=== PATIENT | male | born 1945 | race Caucasian/White ===

== ENCOUNTER 2025-01-03 17:30 | Emergency (ER) | payer OTHER, MEDICARE ==
[~2025-01-03] VITALS: Ht 193 cm; Wt 109.0 kg
--- NOTE | 2025-01-03 17:53 | ED.PDOC ---
History of Present Illness HPI Comments 79-year-old male brought in by EMS from home after multiple syncopal episodes while sitting on the commode. Patient states he has been having abdominal cramping since this morning. Was sitting on the commode, straining to have a bowel movement when he felt lightheaded and lost consciousness. EMS reports vanesa lira was still in and out of consciousness while sitting on the commode when they arrived. Patient's blood pressure was in the mid 80s systolic with heart rate in the mid 50s (patient takes metoprolol), so a 500 cc normal saline bolus was administered, improving the patient's blood pressure to the 120s systolic by the time he arrived in the ER. On arrival, patient states he has lower abdominal discomfort, but not significant pain. He denies any fever, nausea, vomiting, chest pain, shortness a breath or urinary symptoms. Patient does state he has chronic constipation but just prior to the syncopal episode he had some loose stool. EMS reported there was no blood in the stool, and it was not black in color. Chief Complaint: Syncope Time Seen by MD: 17:34 Allergies: Coded Allergies: NO KNOWN ALLERGIES (Unverified , 01/03/25) Home Meds Active Scripts Cephalexin Monohydrate (Cephalexin) 500 Mg Cap, 1 CAP PO QID for 10 Days, #40 CAP Prov:IVA CARDOZO MD 01/03/25 Dicyclomine Hcl (BENTYL CAPSULE) 10 Mg Cp, 2 CAP PO Q6HP PRN, #30 CAP 11 Refills prn intestinal cramping Prov:IVA CARDOZO MD 01/03/25 Past Medical History PAST MEDICAL HISTORY: CAD, DM, High Lipids, HTN Past Medical History (Other): Kidney cancer in remission Surgical History: PTCA Surgical History (Other): Nephrectomy Family History Family History: Reviewed,noncontributory to illness Social History Smoker: Non-Smoker Alcohol: Denies ETOH Use Drugs: Denies Drug Use Lives In: Home All Other Systems: Reviewed and Negative (Comprehensive systems review obtained and negative except for what is stated in the HPI.) Physical Exam General Appearance: No Apparent Distress, Obese HEENT: Other (Pupils and face symmetric. Moist mucous membranes.) Neck: Full Range of Motion, Normal Inspection Respiratory: Lungs Clear, No Accessory Muscle Use, No Respiratory Distress, Normal Breath Sounds Cardiovascular: No Edema, No JVD, Regular Rate/Rhythm Breast Exam: Deferred Gastrointestinal: Soft, Tenderness (Lower abdominal tenderness to palpation. Nontender to percussion. No rebound or guarding.) Genitalia: Deferred Pelvic: Deferred Rectal: Deferred Extremities: Normal inspection, Normal range of motion, Non-tender, No pedal edema Neurologic: Alert (Oriented x4), Normal Affect, Normal Mood, Other (Moves all extremities. No gross focal deficit.) Cerebellar Function: NOT DONE Reflexes: NOT DONE Skin: Dry, Normal Color, Warm Lymphatic: NOT DONE Was a procedure done? Was a procedure done?: No EKG EKG : Comments Sinus rhythm, rate 54, first-degree AV block, normal QRS and QTC intervals, borderline right axis deviation, normal QRS, no ST/T changes. Differential Dx Considerations may include: Vasovagal syncope, CVA, TIA, arrhythmia, OR, hypovolemia, enteritis, colitis, diverticular disease, UTI, kidney stone, electrolyte imbalance, among others X-Ray, Labs, Meds, VS Vital Signs Date Time Temp Pulse Resp B/P (MAP) Pulse Ox O2 Delivery O2 Flow Rate FiO2 01/03/25 20:00 73 01/03/25 19:41 55 16 96 Room Air* 0 21 01/03/25 19:41 97.9 55 16 154/49 (84) 95 97.9 01/03/25 18:05 54 01/03/25 17:55 54 01/03/25 17:39 97.5 54 16 121/54 (76) 94 97.5 01/03/25 17:32 54 Lab Test 01/03/25 20:00 01/03/25 19:00 01/03/25 17:52 Range/Units Urine Color Yellow Yellow Urine Clarity Clear Clear Urine pH 5.5 5.0-9.0 Urine Specific [place] 1.017 1.001-1.035 Urine Protein Trace H Negative Urine Ketones Trace Negative Urine Blood Negative Negative /uL Urine Nitrite Negative Negative Urine Bilirubin Negative Negative Urine Urobilinogen Normal Negative mg/dL Urine Leukocyte Esterase 3+ Negative /uL Urine RBC 2 0 - 3 /hpf Urine Microscopic WBC 21 H 0-3 /HPF Urine Squamous Epithelial Cells Few <5 /hpf Urine Bacteria Few H None Seen /hpf Urine Hyaline Casts Mod 0 - 2 /lpf Urine Mucus Few None Seen Urine Glucose Normal Normal mg/dL Troponin I High Sensitivity 9 8 </=54 ng/L White Blood Count 14.7 H 4.4-10.8 10^3/uL Red Blood Count 4.44 L 4.5-5.90 10^6/uL Hemoglobin 14.7 13.5-17.5 g/dL Hematocrit 43.4 41.0-53.0 % Mean Corpuscular Volume 97.7 80.0-100.0 fL Mean Corpuscular Hemoglobin 33.2 H 28.0-32.0 pg Mean Corpuscular Hemoglobin Concent 33.9 32.0-36.0 g/dL Red Cell Distribution Width 13.8 11.8-14.3 % Platelet Count 219 140-450 10^3/uL Mean Platelet Volume 8.2 6.9-10.8 fL Neutrophils (%) (Auto) 82.5 H 37.0-80.0 % Lymphocytes (%) (Auto) 11.8 10.0-50.0 % Monocytes (%) (Auto) 4.0 0.0-12.0 % Eosinophils (%) (Auto) 1.1 0.0-7.0 % Basophils (%) (Auto) 0.6 0.0-2.0 % Neutrophils # (Auto) 12.1 H 1.6-8.6 10 ^3/uL Lymphocytes # (Auto) 1.7 0.4-5.4 10 ^3/uL Monocytes # (Auto) 0.6 0-1.3 10 ^3/uL Eosinophils # (Auto) 0.2 0-0.8 10 ^3/uL Basophils # (Auto) 0.1 0-0.2 10 ^3/uL Nucleated Red Blood Cells 0.0 % Sodium Level 142 136-145 mmol/L Potassium Level 4.9 3.5-5.1 mmol/L Chloride Level 112 H 98-107 mmol/L Carbon Dioxide Level 24 20-31 mmol/L Anion Gap 6 5-15 Blood Urea Nitrogen 20 9-23 mg/dL Creatinine 1.51 H 0.700-1.30 mg/dL Glomerular Filtration Rate Calc 47 >90 mL/min BUN/Creatinine Ratio 13.2 10.0-20.0 Serum Glucose 149 H 74-106 mg/dL Calcium Level 9.5 8.7-10.4 mg/dL Total Bilirubin 0.8 0.2-1.0 mg/dL Aspartate Amino Transferase (AST) 20 13-40 U/L Alanine Aminotransferase (ALT) 30 7-40 U/L Alkaline Phosphatase 77 46-116 U/L B-Type Natriuretic Peptide 76.10 0-100 pg/mL Total Protein 6.2 5.7-8.2 g/dL Albumin 4.0 3.2-4.8 g/dL Current Medications Medications (Trade) Dose Ordered Sig/Holley Route Start Time Stop Time Status Last Admin Sodium Chloride 500 ml @ 500 mls/hr Q1H ONCE IV 01/03/25 17:45 01/03/25 18:44 DC 01/03/25 17:55 Ceftriaxone Sodium 50 ml @ 100 mls/hr ONCE ONCE IV 01/03/25 21:00 01/03/25 21:29 DC 01/03/25 21:15 PROCEDURE(s): HWOCT - HEAD WITHOUT CONTRAST REASON: syncope ORDER NUMBER(s): [id number], ACCESSION NUMBER(s): [id number] CT HEAD WITHOUT CONTRAST INDICATION: syncope COMPARISON: None TECHNIQUE: CT of the head without intravenous contrast. RADIATION DOSE: CTDIvol: 63 mGy, DLP: 1130 mGy*cm FINDINGS: There is no evidence of acute intracranial hemorrhage, extra-axial collection, mass effect, midline shift, herniation or hydrocephalus. The ventricles, sulci and cisterns are commensurate in size with a mild degree of cerebral volume loss. The peters-white differentiation is intact. Mild periventricular and subcortical white matter hypoattenuation is nonspecific but commonly due to chronic microvascular ischemia. Atherosclerosis in the carotid siphons and right V4 vertebral artery. There is hyperostosis of the right maxillary sinus wall which is suggestive of chronic inflammation. Minimal mucosal thickening in the ethmoid sinuses. Tiny mucous retention cyst in the right frontal sinus. The mastoids are well-aerated. The surrounding soft tissues and osseous structures are unremarkable. IMPRESSION: No evidence of acute intracranial abnormalities. EDURE(s): ABPL - CT AB PEL WO CON-NO ORAL OR IV REASON: abd pain, diarrhea ORDER NUMBER(s): [id number], ACCESSION NUMBER(s): [id number] Exam: CT CT AB PEL WO CON-NO ORAL OR IV History: abd pain, diarrhea Comparison Study: None TECHNIQUE: Multidetector CT of the abdomen was performed from lung bases to pubic symphysis. Imaging was performed without IV contrast. Axial, coronal and sagittal multiplanar reformats were obtained from the axial data set by the technologist. Radiation Dose Information: CT Dose: CTDI volume is 23.31 mGy. Dose-length product is 1166.47 mGy*cm FINDINGS: Evaluation of solid organs is limited due to lack of intravenous contrast use. Findings: Lung Bases: Scarring or linear atelectasis left base Normal heart size. No pleural or pericardial effusion. Liver: The liver is normal in size. No focal lesions. Gallbladder and Biliary Tree: Unremarkable Spleen: Unremarkable Pancreas: The pancreas is grossly normal in appearance. Adrenal Glands: Unremarkable Kidneys: Left kidney not visualized. 6.6 cm cyst upper pole right kidney and a smaller cyst more inferiorly noted. The larger cyst appears to be septated and most likely is a Bosniak 1. Bladder: Grossly unremarkable for degree of distention. Bowel: The stomach is grossly normal in appearance. Small bowel and colon are normal in caliber and distribution. The appendix is not visualized; however, no secondary findings of acute appendicitis identified. Ascites: Absent Lymphadenopathy: No mesenteric, retroperitoneal or periportal lymphadenopathy. Abdominal Wall and Mesentery: 4.8 cm fat containing umbilical hernia. Vasculature: The visualized abdominal aorta is normal in size and caliber. Evaluation of abdominal and pelvic vessels is limited due to lack of intravenous contrast. Pelvic Organs: Unremarkable Musculoskeletal: No aggressive focal bony lesions, acute fractures or dislocation. Bony spondylosis and degenerative disc changes at L3-L4 and L5 S1 Soft tissues: Unremarkable IMPRESSION: 1. 6.5 cm cyst upper pole right kidney 2. 4.8 cm fat containing umbilical hernia 3. No findings of bowel obstruction. Radiation optimization: All CT scans at this facility use at least one of these dose optimization techniques: automated exposure control mA and/or kV adjustment per patient size (includes targeted exams where dose is matched to clinical indication) or iterative reconstruction. X-Ray, Labs, Meds, VS Comment 79-year-old male with history of hypertension, diabetes, CAD, dyslipidemia presenting with a syncopal episode after experiencing intestinal cramping, then straining at stool on the commode, associated with initial constipation followed by watery stool Vitals remarkable for heart rate 54, BP 121/54 Exam remarkable for bradycardia and lower abdominal tenderness to palpation Rhythm strip independently interpreted by me: Sinus bradycardia, rate 54, no ectopy. CT head IMPRESSION: No evidence of acute intracranial abnormalities. CT abdomen and pelvis IMPRESSION: 1. 6.5 cm cyst upper pole right kidney 2. 4.8 cm fat containing umbilical hernia 3. No findings of bowel obstruction. CBC remarkable for WBC 14.7. CMP, BNP and troponin unremarkable. UA abnormal consistent with UTI Patient treated with the following in the ED: 500 cc 0.9 normal saline IV bolus, Bentyl 20 mg IM, Rocephin 1 g IV with improvement of symptoms. On re-evaluation, vitals were stable, patient was neurologically intact and was asymptomatic. Hospitalization was considered and discussed with patient, however patient stated he did not want to be hospitalized, and had rapid improvement of symptoms with treatment in the ED. Patient appears stable for discharge with close outpatient follow up with his primary physician. Rx Keflex, Bentyl Time of 1ST Reevaluation: 18:00 Reevaluation 1ST: Unchanged Time of 2ND Reevaluation: 19:27 Reevaluation 2ND: Improved Patient Education/Counseling: Diagnosis, Treatment, Need For Follow Up Family Education/Counseling: No Family Present Departure 1 Departure Time of Disposition: 19:27 Impression: Primary Impression: Vasovagal syncope Additional Impressions: Intestinal cramps UTI (urinary tract infection) Qualified Codes: N39.0 - Urinary tract infection, site not specified Disposition: HOME / SELF CARE / HOMELESS Condition: Stable Additional Instructions: I have prescribed medication for intestinal cramping and antibiotics for urine urinary tract infection. Follow up with her primary doctor in 1-2 days. Return to ER for persistent or worsening symptoms. e-Prescriptions Cephalexin Monohydrate (Cephalexin) 500 Mg Cap 1 CAP PO QID for 10 Days, #40 CAP Prov: IVA CARDOZO MD 01/03/25 Dicyclomine Hcl (BENTYL CAPSULE) 10 Mg Cp 2 CAP PO Q6HP PRN, #30 CAP 11 Refills prn intestinal cramping Prov: IVA CARDOZO MD 01/03/25 Discharged With: Relative Critical Care Note Critical Care Time?: No Stability Stability form required: No Heart Score Heart Score: Heart Score Response (Comments) Value History N/A 0 EKG N/A 0 Age N/A 0 Risk Factors N/A 0 Troponin N/A 0 Total 0 IVA CARDOZO MD Jan 03, 2025 17:52
[2025-01-03] MEDS: SODIUM CHLORIDE 0.9% 500 ML IV ONE (17:55)
--- NOTE | 2025-01-03 17:55 | ED.PDOC ---
History of Present Illness HPI Comments 79-year-old male brought in by EMS presents with a chief complaint of syncopal episodes, diarrhea, abdominal pain, and diaphoresis. Patient had multiple syncopal episodes today while in the restroom. Patient however denies hitting his head or any fall injuries. Patient was pale and diaphoretic on EMS arrival. Patient is also complaining of diarrhea, but denies nausea and vomiting. Patient also endorses abdominal cramping. Patient was given 300mL of NS due to a low BP of 83/54. Chief Complaint: Syncope Time Seen by MD: 17:50 Primary Care Provider: UNKNOWN Reviewed Notes: Medications, Allergies Allergies: Coded Allergies: NO KNOWN ALLERGIES (Unverified , 01/03/25) Information Source: Patient, Emergency Med Personnel Mode of Arrival: EMS Severity: Moderate Timing: Minutes Duration: Since onset Prehospital treatment: 12 Lead EKG, Photographer Aerial, IVF Past Medical History PAST MEDICAL HISTORY: Pt Confused Surgical History: Denies all surgeries Family History Family History: Reviewed,noncontributory to illness Social History Smoker: Non-Smoker Alcohol: Denies ETOH Use Drugs: Denies Drug Use Lives In: Home Constitutional: reports: diaphoresis; denies: chills, fatigue, fever, malaise, sweats, weakness, others EENTM: denies: blurred vision, double vision, ear bleeding, ear discharge, ear drainage, ear pain, ear ringing, eye pain, eye redness, hearing loss, mouth pain, mouth swelling, nasal discharge, nose bleeding, nose congestion, nose pain, photophobia, tearing, throat pain, throat swelling, voice changes, others Respiratory: denies: cough, hemoptysis, orthopnea, SOB at rest, shortness of breath, SOB with excertion, stridor, wheezing, others Cardiovascular: reports: syncope; denies: chest pain, dizzy spells, diaphoresis, Dyspnea on exertion, edema, irregular heart beat, left arm pain, lightheadedness, palpitations, PND, others Gastrointestinal: reports: abdominal pain, diarrhea; denies: abdomen distended, blood streaked bowels, constipated, dysphagia, difficulty swallowing, hematemesis, melena, nausea, poor appetite, poor fluid intake, rectal bleeding, rectal pain, vomiting, others Genitourinary: denies: burning, dysuria, flank pain, frequency, hematuria, incontinence, penile discharge, penile sore, pain, testicle pain, testicle swelling, urgency, others Neurological: denies: dizziness, fainting, headache, left sided numbness, left sided weakness, numbness, paresthesia, pre-existing deficit, right sided numbness, right sided weakness, seizure, speech problems, tingling, tremors, weakness, others Musculoskeletal: denies: back pain, gout, joint pain, joint swelling, muscle pain, muscle stiffness, neck pain, others Integumetry: denies: bruises, change in color, change in hair/nails, dryness, laceration, lesions, lumps, rash, wounds, others Allergic/Immunocompromised: denies: Difficulty Healing, Frequent Infections, Hives, Itching, others Hematologic/Lymphatic: denies: anemia, blood clots, easy bleeding, easy bruising, swollen glands, others Endocrine: denies: excessive hunger, excessive sweating, excessive thirst, excessive urination, flushing, intolerance to cold, intolerance to heat, unexplained weight gain, unexplained weight loss, others Psychiatric: denies: anxiety, bipolar disorder, depression, hopeless, panic disorder, schizophrenia, sleepless, suicidal, others All Other Systems: Reviewed and Negative Was a procedure done? Was a procedure done?: No EKG EKG : Pulse Rate (adult): 54 [place]: RAD Cardiac Rhythm: Junctional Block: None Hypertrophy: None ST: Normal X-Ray, Labs, Meds, VS Vital Signs Date Time Temp Pulse Resp B/P (MAP) Pulse Ox O2 Delivery O2 Flow Rate FiO2 01/03/25 17:55 54 01/03/25 17:39 97.5 54 16 121/54 (76) 94 97.5 01/03/25 17:32 54 Lab Test 01/03/25 17:52 Range/Units White Blood Count 14.7 H 4.4-10.8 10^3/uL Red Blood Count 4.44 L 4.5-5.90 10^6/uL Hemoglobin 14.7 13.5-17.5 g/dL Hematocrit 43.4 41.0-53.0 % Mean Corpuscular Volume 97.7 80.0-100.0 fL Mean Corpuscular Hemoglobin 33.2 H 28.0-32.0 pg Mean Corpuscular Hemoglobin Concent 33.9 32.0-36.0 g/dL Red Cell Distribution Width 13.8 11.8-14.3 % Platelet Count 219 140-450 10^3/uL Mean Platelet Volume 8.2 6.9-10.8 fL Neutrophils (%) (Auto) 82.5 H 37.0-80.0 % Lymphocytes (%) (Auto) 11.8 10.0-50.0 % Monocytes (%) (Auto) 4.0 0.0-12.0 % Eosinophils (%) (Auto) 1.1 0.0-7.0 % Basophils (%) (Auto) 0.6 0.0-2.0 % Neutrophils # (Auto) 12.1 H 1.6-8.6 10 ^3/uL Lymphocytes # (Auto) 1.7 0.4-5.4 10 ^3/uL Monocytes # (Auto) 0.6 0-1.3 10 ^3/uL Eosinophils # (Auto) 0.2 0-0.8 10 ^3/uL Basophils # (Auto) 0.1 0-0.2 10 ^3/uL Nucleated Red Blood Cells 0.0 % Sodium Level Pending Potassium Level Pending Chloride Level Pending Carbon Dioxide Level Pending Anion Gap Pending Blood Urea Nitrogen Pending Creatinine Pending Glomerular Filtration Rate Calc Pending BUN/Creatinine Ratio Pending Serum Glucose Pending Calcium Level Pending Total Bilirubin Pending Aspartate Amino Transferase (AST) Pending Alanine Aminotransferase (ALT) Pending Alkaline Phosphatase Pending Troponin I High Sensitivity Pending B-Type Natriuretic Peptide Pending Total Protein Pending Albumin Pending Current Medications Medications (Trade) Dose Ordered Sig/Holley Route Start Time Stop Time Status Last Admin Sodium Chloride 500 ml @ 500 mls/hr Q1H ONCE IV 01/03/25 17:45 01/03/25 18:44 01/03/25 17:55 Time of 1ST Reevaluation: 18:20 Reevaluation 1ST: Unchanged Patient Education/Counseling: Diagnosis, Treatment Family Education/Counseling: No Family Present Critical Care Note Critical Care Time?: No Stability Stability form required: No Heart Score Heart Score: Heart Score Response (Comments) Value History N/A 0 EKG N/A 0 Age N/A 0 Risk Factors N/A 0 Troponin N/A 0 Total 0 I personally scribed for IVA CARDOZO MD ([email or web address]) on 01/03/25 at 17:55. Electronically submitted by Alvino Chen ([email or web address]). I personally scribed for IVA CARDOZO MD ([email or web address]) on 01/03/25 at 18:11. Electronically submitted by Alvino Chen ([email or web address]). IVA CARDOZO MD Jan 03, 2025 17:55
[2025-01-03 18:07] LABS: Basophils # (auto) 0.1 10 ^3/uL (0-0.2); Basophils % (auto) 0.6 % (0.0-2.0); Eosinophils # (auto) 0.2 10 ^3/uL (0-0.8); Eosinophils % (auto) 1.1 % (0.0-7.0); Hematocrit 43.4 % (41.0-53.0); Hemoglobin 14.7 g/dL (13.5-17.5); Lymphocytes # (auto) 1.7 10 ^3/uL (0.4-5.4); Lymphocytes % (auto) 11.8 % (10.0-50.0); Mean Corpuscular Hemoglobin 33.2 pg (28.0-32.0); Mean Corpuscular Hgb Conc. 33.9 g/dL (32.0-36.0); Mean Corpuscular Volume 97.7 fL (80.0-100.0); Monocytes # (auto) 0.6 10 ^3/uL (0-1.3); Neutrophils # (auto) 12.1 10 ^3/uL (1.6-8.6); Neutrophils % (auto) 82.5 % (37.0-80.0); Platelet Count (auto) 219 10^3/uL (140-450); Red Blood Cells 4.44 10^6/uL (4.5-5.90); Red Cell Distribution Width 13.8 % (11.8-14.3); White Blood Cell 14.7 10^3/uL (4.4-10.8)
[2025-01-03 18:24] LABS: Alanine Aminotransferase 30 U/L (7-40); Alkaline Phosphatase 77 U/L (46-116); Anion Gap 6 (5-15); Aspartate Aminotransferase 20 U/L (13-40); BUN/Creatinine Ratio 13.2 (10.0-20.0); Bilirubin, Total 0.8 mg/dL (0.2-1.0); Blood Urea Nitrogen 20 mg/dL (9-23); Calcium 9.5 mg/dL (8.7-10.4); Carbon Dioxide 24 mmol/L (20-31); Potassium 4.9 mmol/L (3.5-5.1); Sodium 142 mmol/L (136-145); Total Protein 6.2 g/dL (5.7-8.2)
[2025-01-03 18:25] LABS: Chloride 112 mmol/L (98-107); Glucose 149 mg/dL (74-106)
--- NOTE | 2025-01-03 18:45 | DVH ---
CT HEAD WITHOUT CONTRAST INDICATION: syncope COMPARISON: None TECHNIQUE: CT of the head without intravenous contrast. RADIATION DOSE: CTDIvol: 63 mGy, DLP: 1130 mGy*cm FINDINGS: There is no evidence of acute intracranial hemorrhage, extra-axial collection, mass effect, midline s hift, herniation or hydrocephalus. The ventricles, sulci and cisterns are commensurate in size with a mild degree of cerebral volume los s. The peters-white differentiation is intact. Mild periventricular and subcortical white matter hypoattenuation is nonspecific but commonly due to chronic microvascular ischemia. Atherosclerosis in the carotid siphons and right V4 vertebral artery. There is hyperostosis of the right maxillary sinus wall which is suggestive of chronic inflammation. Minimal mucosal thickening in the ethmoid sinuses. Tiny mucous retention cyst in the right frontal si nus. The mastoids are well-aerated. The surrounding soft tissues and osseous structures are unremarkable. IMPRESSION: No evidence of acute intracranial abnormalities.
--- NOTE | 2025-01-03 19:15 | DVH ---
Exam: CT CT AB PEL WO CON-NO ORAL OR IV History: abd pain, diarrhea Comparison Study: None TECHNIQUE: Multidetector CT of the abdomen was performed from lung bases to pubic symphysis. Imaging was performed without IV contrast. Axial, coronal and sagittal multiplanar reformats were obtained fr om the axial data set by the technologist. Radiation Dose Information: CT Dose: CTDI volume is 23.31 mGy. Dose-length product is 1166.47 mGy*cm FINDINGS: Evaluation of solid organs is limited due to lack of intravenous contrast use. Findings: Lung Bases: Scarring or linear atelectasis left base Normal heart size. No pleural or pericardial ef fusion. Liver: The liver is normal in size. No focal lesions. Gallbladder and Biliary Tree: Unremarkable Spleen: Unremarkable Pancreas: The pancreas is grossly normal in appearance. Adrenal Glands: Unremarkable Kidneys: Left kidney not visualized. 6.6 cm cyst upper pole right kidney and a smaller cyst more infe riorly noted. The larger cyst appears to be septated and most likely is a Bosniak 1. Bladder: Grossly unremarkable for degree of distention. Bowel: The stomach is grossly normal in appearance. Small bowel and colon are normal in caliber and d istribution. The appendix is not visualized; however, no secondary findings of acute appendicitis id entified. Ascites: Absent Lymphadenopathy: No mesenteric, retroperitoneal or periportal lymphadenopathy. Abdominal Wall and Mesentery: 4.8 cm fat containing umbilical hernia. Vasculature: The visualized abdominal aorta is normal in size and caliber. Evaluation of abdominal a nd pelvic vessels is limited due to lack of intravenous contrast. Pelvic Organs: Unremarkable Musculoskeletal: No aggressive focal bony lesions, acute fractures or dislocation. Bony spondylosis a nd degenerative disc changes at L3-L4 and L5 S1 Soft tissues: Unremarkable IMPRESSION: 1. 6.5 cm cyst upper pole right kidney 2. 4.8 cm fat containing umbilical hernia 3. No findings of bowel obstruction. Radiation optimization: All CT scans at this facility use at least one of these dose optimization max hniques: automated exposure control mA and/or kV adjustment per patient size (includes targeted exam s where dose is matched to clinical indication) or iterative reconstruction.
[2025-01-03] MEDS ORDERED: DICY10CA PO (19:29)
[2025-01-03 19:41] VITALS: BP 154/49; PULSE 55; RESP 16; TEMP 97.9; O2SAT 96
[2025-01-03] MEDS: DICYCLOMINE HCL (10MG/ML) 2 ML AMPULE IM ONE (19:50)
[2025-01-03 20:00] VITALS: PULSE 73
[2025-01-03 20:45] LABS: Urine Bacteria FEW /hpf (None Seen); Urine Blood Negative /uL (Negative); Urine Clarity Clear (Clear); Urine Color Yellow (Yellow); Urine Hyaline Cast MOD /lpf (0 - 2); Urine Mucus FEW (None Seen); Urine Protein, UAD TRACE (Negative); Urine Specific Gravity 1.017 (1.001-1.035); Urine Squamous Epithelial Cell FEW /hpf (<5); Urine Urobilinogen Normal (Negative); Urine WBC 21 /HPF (0-3); Urine pH 5.5 (5.0-9.0)
[2025-01-03] MEDS ORDERED: CEPH500C PO (20:56)
[2025-01-03] MEDS: cefTRIAXone 1GM/50ML D5W 50 ML IV ONE (21:15)
--- NOTE | 2025-01-05 13:13 | ECG ---
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
== END 2025-01-03 21:20 | disposition home or self-care (01) ==
LOC: ER 17:30 → EDBD 17:30 → ER 21:20
DX: N39.0 Urinary tract infection, site not specified (principal); R55 Syncope and collapse; R25.2 Cramp and spasm; I10 Essential (primary) hypertension; E11.9 Type 2 diabetes mellitus without complications; I25.10 Atherosclerotic heart disease of native coronary artery without angina pectoris; R06.02 Shortness of breath; Z85.528 Personal history of other malignant neoplasm of kidney; Z79.899 Other long term (current) drug therapy
CPT/HCPCS: 36415; 70450; 74176; 80053; 81001; 82947; 83880; 84484; 85025; 93005; 96365; 99285; J0696; J7040